=== PATIENT | male | born 1975 | race Caucasian/White ===

== ENCOUNTER 2019-10-18 10:06 | Day surgery (SDC) | payer MEDICAID ==
[2019-10-13 10:27] LABS: BASOPHILS % (AUTO) 0.4 % (0-1); EOSINOPHILS # (AUTO) 0.2 X10'3 (0-0.9); EOSINOPHILS % (AUTO) 2.4 % (0-6); LYMPHOCYTES # (AUTO) 2.1 X10'3 (1.1-4.8); LYMPHOCYTES % (AUTO) 24.7 % (21-51); MEAN CORPUSCULAR HEMOGLOBIN 29.3 PG (27.0-31.0); MEAN CORPUSCULAR HGB CONC 33.6 g/dL (33.0-36.5); MEAN CORPUSCULAR VOLUME 87.2 FL (78-98); MEAN PLATELET VOLUME 8.3 FL (7.4-10.4); MONOCYTES # (AUTO) 0.8 X10'3 (0-0.9); MONOCYTES % (AUTO) 9.5 % (2-12); NEUTROPHILS # (AUTO) 5.3 X10'3 (1.8-7.7); PRE OP HEMATOCRIT 48.5 % (42.0-52.0); PRE OP HEMOGLOBIN 16.3 g/dL (14.0-17.9); PRE OP PLATELET COUNT 229 X10'3 (140-440); RED BLOOD COUNT 5.56 X10'6 (4.70-6.10)
[2019-10-13 10:34] LABS: ALBUMIN 3.6 G/DL (3.4-5.0); ALKALINE PHOSPHATASE 99 IU/L (46-116); BLOOD UREA NITROGEN 18 MG/DL (7-18); BUN/CREATININE RATIO 15.3 (5.4-32.0); CALCIUM 9.2 MG/DL (8.5-10.1); CHLORIDE 106 MMOL/L (99-107); CREATININE 1.18 MG/DL (0.60-1.10); PRE OP ALT 41 U/L (30-65); PRE OP ANION GAP 6 (8-16); PRE OP AST 23 U/L (10-37); PRE OP BILIRUB, TOTAL 0.3 MG/DL (0.0-1.0); PRE OP GLUCOSE 100 MG/DL (70-104); PRE OP POTASSIUM 4.4 MMOL/L (3.4-5.1); PRE OP SODIUM 140 MMOL/L (135-145); TOTAL CARBON DIOXIDE 27.8 MMOL/L (24-32); TOTAL PROTEIN 7.3 G/DL (6.4-8.2); eGFR 67 ML/MIN
[~2019-10-18] VITALS: Ht 180.3 cm; Wt 127.0 kg
[2019-10-18] VITALS (17 sets, daily range): BP systolic 129–152; BP diastolic 61–98
[~2019-10-18 10:06] MED LIST: BUPIVAcaine/PF 2.5 mg/ml (0.25%) 30ml vial ONE; CHOL500050; LIDOcaine 1% 30ml preserv. free vial ONE; METO-477 PO; ceFAZolin/D5W- 1GM premix 50 ML IV ONE; cefazolin/dext.iso 2gm/50ml 50 ML IV ONE; famotidine 20mg tablet PO ONE; ringers solution, lacted 1,000 ML IV SCH
[2019-10-18] MEDS ORDERED: diazepam 5mg tablet PO ONE (10:55)
[2019-10-18] MEDS ORDERED: ringers solution, lacted 1,000 ML IV SCH (11:14)
[2019-10-18] MEDS ORDERED: proCHLORperazine 10 MG/2 ml inj IV PRN (11:15)
[2019-10-18] MEDS ORDERED: meperidine/PF 25mg/ml syringe IV PRN ×2 (11:15)
[2019-10-18] MEDS ORDERED: morphine 2 MG/ML inj. syringe IV PRN (11:15)
[2019-10-18] MEDS ORDERED: ondansetron/PF 4mg/2ml inj IV PRN (11:15)
[2019-10-18] MEDS ORDERED: morphine 4 MG/ML inj SYRINge IV PRN (11:15)
[2019-10-18] MEDS ORDERED: fentaNYL/PF 50MCG/1 ML 2ML syringe ONE (12:45)
[2019-10-18] MEDS ORDERED: LIDOcaine 2% (20mg/ml) 5ml vial ONE (12:45)
[2019-10-18] MEDS ORDERED: propofol inj 20 ML IV ONE (12:45)
[2019-10-18] MEDS ORDERED: midazolam 2 mg/2 ml injection ONE (12:45)
[2019-10-18] MEDS ORDERED: rocuronium 10mg/ml inj IV ONE (12:45)
[2019-10-18] MEDS ORDERED: BUPIVAcaine/PF 2.5mg/ml (0.25%) 10ml vial ONE (13:03)
[2019-10-18] MEDS ORDERED: BUPIVACAINE liposomal/PF 13.3 MG/ML vial IM ONE (13:04)
[2019-10-18] MEDS ORDERED: acetaminophen 1000 MG/100ml vial IV ONE (13:12)
[2019-10-18] MEDS ORDERED: neostigmine methylsulfate 1 MG/ML 10ml vial ONE (13:12)
[2019-10-18] MEDS ORDERED: sevoflurane 250ml liquid IH ONE (13:12)
[2019-10-18] MEDS ORDERED: dexamethasone sod phosphate 4mg/ml inj. ONE (13:40)
[2019-10-18] MEDS ORDERED: ondansetron/PF 4mg/2ml inj ONE ×2 (13:41)
[2019-10-18] MEDS ORDERED: morphine 4 MG/ML inj SYRINge ONE (13:42)
[2019-10-18] MEDS ORDERED: oxyCODONE/APAP 10/325mg tablet PO PRN (14:45)
[2019-10-18] MEDS ORDERED: glycopyrrolate 0.2mg/ml inj ONE (14:47)
--- NOTE | 2019-10-18 14:51 | NUR ---
RECEIVED FROM OR VIA [facility] ACCOMPANIED BY ANESTHESIOLOGIST DR MCCAIN, REPORT GIVEN. PT DROWSY BUT AWAKENS WITH NO COMPLAINT OF PAIN AT THIS TIME. 20 GAUGE PIV L HAND PATENT AND RUNNING LR AT 100 ML/HR. LG BANDAIDSX 4 TO ABD CDI WITH ABD BINDER IN PLACE. WALKER, SKIN PINK AND WARM, SKIN PINK AND WARM.
--- NOTE | 2019-10-18 14:51 | NUR ---
AWAKE AND ALERT WITH A LEVEL 5 PAIN AT THIS TIME. 20 GAUGE PIV L HAND DC/D CATH TIP INTACT. LG BANDAIDSX 4 TO ABD CDI WITH ABD BINDER IN PLACE. WALKER, SKIN PINK AND WARM, SKIN PINK AND WARM. TOLERATING FLUIDS AND ABLE TO VOID, DISCHARGE INSTRUCTIONS GIVEN AND VERBALIZED UNDERSTANDING. TRANSPORTED VIA WHEELCHAIR TO FAMILY IN PERSONAL VEHICLE TO HOME.
[2019-10-18] MEDS: meperidine/PF 25mg/ml syringe IV PRN ×4 (15:18→16:56)
== END 2019-10-18 17:31 | disposition home or self-care (01) ==
LOC: PAS 10:06
PROVIDERS: ATTEND Surgery
DX: K42.0 Umbilical hernia with obstruction, without gangrene (principal); I10 Essential (primary) hypertension; G89.29 Other chronic pain; Z98.890 Other specified postprocedural states; Z79.899 Other long term (current) drug therapy; F17.210 Nicotine dependence, cigarettes, uncomplicated; Z11.59 Encounter for screening for other viral diseases; Z82.49 Family history of ischemic heart disease and other diseases of the circulatory system; Z82.3 Family history of stroke
CPT/HCPCS: 36415; 49653; 64488; 80053; 82948; 85025; 87635; C1781; C9290; J0131; J0690; J1100; J2001; J2175; J2250; J2270; J2405; J2704; J2710; J3010; J3490; J7120; S2900; A4215; A4618

== ENCOUNTER 2019-10-31 22:59 | Emergency (ER) | payer MEDICAID ==
[~2019-10-31] VITALS: Ht 180.3 cm; Wt 150.5 kg
[~2019-10-31 22:59] MED LIST changes: -BUPIVAcaine/PF 2.5 mg/ml (0.25%) 30ml vial ONE; -LIDOcaine 1% 30ml preserv. free vial ONE; -ceFAZolin/D5W- 1GM premix 50 ML IV ONE; -cefazolin/dext.iso 2gm/50ml 50 ML IV ONE; -famotidine 20mg tablet PO ONE; -ringers solution, lacted 1,000 ML IV SCH
[2019-10-31 23:34] LABS: BASOPHILS # (AUTO) 0.1 X10'3 (0-0.2); BASOPHILS % (AUTO) 0.5 % (0-1); EOSINOPHILS # (AUTO) 0.2 X10'3 (0-0.9); HEMATOCRIT 48.5 % (42.0-52.0); HEMOGLOBIN 16.1 g/dl (14.0-17.9); LYMPHOCYTES # (AUTO) 2.6 X10'3 (1.1-4.8); LYMPHOCYTES % (AUTO) 22.3 % (21-51); MEAN CORPUSCULAR HEMOGLOBIN 28.8 PG (27.0-31.0); MEAN CORPUSCULAR HGB CONC 33.2 g/dL (33.0-36.5); MEAN CORPUSCULAR VOLUME 86.6 FL (78-98); MEAN PLATELET VOLUME 7.9 FL (7.4-10.4); MONOCYTES # (AUTO) 0.9 X10'3 (0-0.9); MONOCYTES % (AUTO) 7.8 % (2-12); NEUTROPHILS # (AUTO) 7.8 X10'3 (1.8-7.7); NEUTROPHILS % (AUTO) 67.4 % (42-75); PLATELET COUNT 278 X10'3 (140-440); RED CELL DISTRIBUTION WIDTH 14.2 % (11.5-14.5); WHITE BLOOD COUNT 11.6 X10'3 (4.5-11.0)
[2019-10-31 23:49] LABS: PARTIAL THROMBOPLASTIN TIME 27 SECONDS (22-32)
[2019-10-31 23:52] LABS: ALANINE AMINOTRANSFERASE 33 U/L (12-78); ALBUMIN 3.8 G/DL (3.4-5.0); ALKALINE PHOSPHATASE 116 IU/L (46-116); ANION GAP 7 (8-16); ASPARTATE AMINO TRANSFERASE 9 U/L (10-37); BILIRUBIN,TOTAL 0.2 MG/DL (0.1-1.0); BLOOD UREA NITROGEN 14 MG/DL (7-18); BUN/CREATININE RATIO 11.9 (5.4-32.0); CALCIUM 9.1 MG/DL (8.5-10.1); CHLORIDE 106 MMOL/L (99-107); CREATININE 1.18 MG/DL (0.60-1.10); GLUCOSE 105 MG/DL (70-104); POTASSIUM 3.8 MMOL/L (3.5-5.1); SODIUM 140 MMOL/L (135-145); TOTAL PROTEIN 7.7 G/DL (6.4-8.2); eGFR 67 ML/MIN
[2019-10-31] MEDS ORDERED: iohexol 300mg/ml 100ml inj. ONE (23:52)
[2019-11-01 00:16] LABS: CLARITY,URINE CLEAR (Clear); COLOR,URINE YELLOW (Yellow); GLUCOSE, URINE NEGATIVE (Neg); KETONES,URINE NEGATIVE (Neg); LEUKOCYTE ESTERASE ,URINE NEGATIVE (Neg); NITRITES, URINE NEGATIVE (Neg); OCCULT BLOOD,URINE SMALL (Neg); PH,URINE 6.5 (4.8-8.0); PROTEIN,URINE NEGATIVE (Neg); UROBILINOGEN,URINE 0.2 E.U/dL (0.2-1.0)
[2019-11-01 00:25] LABS: UA COLLECTION TYPE CLN CATCH MIDSTREAM
[2019-11-01 00:26] LABS: BACTERIA,URINE FEW /HPF (Neg); RBC,URINE 0-2 /HPF (0-2); SQUAMOUS EPITHELIAL CELL,UR FEW /LPF (FEW); WBC,URINE 0-4 /HPF (0-4)
[2019-11-01] MEDS ORDERED: HYDROcodone/acetaminophen 5mg/325mg tablet PO ONE (00:40)
[2019-11-01 00:43] VITALS: BP 173/116
== END 2019-11-01 01:37 | disposition home or self-care (01) ==
LOC: ER 22:59
DX: G89.18 Other acute postprocedural pain (principal); R10.12 Left upper quadrant pain; I10 Essential (primary) hypertension; Z98.890 Other specified postprocedural states; Z79.899 Other long term (current) drug therapy
CPT/HCPCS: 36415; 74177; 80053; 81001; 83605; 84145; 85025; 85610; 85730; 87040; 87088; 99285; Q9967; 99284

== ENCOUNTER 2020-10-03 08:10 | Emergency (ER) | payer MEDICAID ==
[~2020-10-03] VITALS: Ht 180.3 cm; Wt 128.4 kg
[2020-10-03] MEDS ORDERED: morphine 4 MG/ML inj SYRINge IV ONE (08:30)
[2020-10-03] MEDS ORDERED: normal saline 1000ML IV soln IVB ONE (08:30)
[2020-10-03] MEDS ORDERED: ondansetron/PF 4mg/2ml inj IV ONE (08:30)
[2020-10-03 08:51] LABS: CLARITY,URINE SLIGHTLY CLOUDY (Clear); COLOR,URINE YELLOW (Yellow); GLUCOSE, URINE NEGATIVE (Neg); KETONES,URINE NEGATIVE (Neg); LEUKOCYTE ESTERASE ,URINE NEGATIVE (Neg); OCCULT BLOOD,URINE SMALL (Neg); PROTEIN,URINE NEGATIVE (Neg); UROBILINOGEN,URINE 0.2 E.U/dL (0.2-1.0)
[2020-10-03 08:51] LABS: BASOPHILS % (AUTO) 0.5 % (0-1); EOSINOPHILS # (AUTO) 0.1 X10'3 (0-0.9); EOSINOPHILS % (AUTO) 1.8 % (0-6); HEMATOCRIT 52.6 % (42.0-52.0); HEMOGLOBIN 17.9 g/dl (14.0-17.9); LYMPHOCYTES % (AUTO) 24.3 % (21-51); MEAN CORPUSCULAR HEMOGLOBIN 29.8 PG (27.0-31.0); MEAN CORPUSCULAR VOLUME 87.6 FL (78-98); MONOCYTES # (AUTO) 0.7 X10'3 (0-0.9); MONOCYTES % (AUTO) 9.3 % (2-12); NEUTROPHILS # (AUTO) 5.2 X10'3 (1.8-7.7); NEUTROPHILS % (AUTO) 64.1 % (42-75); PLATELET COUNT 219 X10'3 (140-440); RED BLOOD COUNT 6.01 X10'6 (4.70-6.10); RED CELL DISTRIBUTION WIDTH 14.5 % (11.5-14.5); WHITE BLOOD COUNT 8.1 X10'3 (4.5-11.0)
[2020-10-03 08:54] LABS: UA COLLECTION TYPE NON-SPECIFIED
[2020-10-03 08:56] LABS: NITRITES, URINE NEGATIVE (Neg)
[2020-10-03 08:58] LABS: BACTERIA,URINE FEW /HPF (Neg); HYALINE CASTS 0-3 /LPF (NEGATIVE); MUCUS STRANDS MODERATE /LPF (Neg); RBC,URINE 0-2 /HPF (0-2); SQUAMOUS EPITHELIAL CELL,UR FEW /LPF (FEW); WBC,URINE 0-4 /HPF (0-4)
[2020-10-03 09:06] LABS: ALANINE AMINOTRANSFERASE 59 U/L (12-78); ALBUMIN 3.7 G/DL (3.4-5.0); ALBUMIN/GLOBULIN RATIO 0.9 (1.1-1.5); ALKALINE PHOSPHATASE 97 IU/L (46-116); ANION GAP 12 (8-16); ASPARTATE AMINO TRANSFERASE 23 U/L (10-37); BILIRUBIN,TOTAL 0.4 MG/DL (0.1-1.0); BLOOD UREA NITROGEN 14 MG/DL (7-18); BUN/CREATININE RATIO 13.6 (5.4-32.0); CALCIUM 9.2 MG/DL (8.5-10.1); CHLORIDE 107 MMOL/L (99-107); CREATININE 1.03 MG/DL (0.60-1.10); GLUCOSE 114 MG/DL (70-104); LIPASE 108 U/L (73-393); POTASSIUM 4.3 MMOL/L (3.5-5.1); SODIUM 143 MMOL/L (135-145); TOTAL PROTEIN 7.7 G/DL (6.4-8.2); eGFR 78 ML/MIN
[2020-10-03] MEDS ORDERED: ketorolac trometh. 30mg/ml inj. IV ONE (09:10)
[2020-10-03 09:15] VITALS: BP 135/98
== END 2020-10-03 10:13 | disposition home or self-care (01) ==
LOC: ER 08:10
DX: R10.33 Periumbilical pain (principal); I10 Essential (primary) hypertension; Z98.890 Other specified postprocedural states; Z79.899 Other long term (current) drug therapy
CPT/HCPCS: 36415; 80053; 81001; 83690; 85025; 96361; 96374; 96375; 99284; J1885; J2405; J7030

== ENCOUNTER 2021-02-10 13:21 | Emergency (ER) | payer MEDICAID | END 2021-02-10 13:56 | disposition left against medical advice (07) | LOC: ER 13:22 | DX: R10.9 Unspecified abdominal pain (principal); Z53.21 Procedure and treatment not carried out due to patient leaving prior to being seen by health care provider ==

== ENCOUNTER 2021-02-11 09:09 | Emergency (ER) | payer MEDICAID ==
[~2021-02-11] VITALS: Ht 180.3 cm; Wt 122.7 kg
[2021-02-11 09:28] VITALS: BP 128/87
[2021-02-11 10:14] LABS: BASOPHILS % (AUTO) 0.6 % (0-1); EOSINOPHILS # (AUTO) 0.2 X10'3 (0-0.9); EOSINOPHILS % (AUTO) 2.4 % (0-6); HEMATOCRIT 50.8 % (42.0-52.0); HEMOGLOBIN 17.1 g/dl (14.0-17.9); LYMPHOCYTES # (AUTO) 1.7 X10'3 (1.1-4.8); LYMPHOCYTES % (AUTO) 23.3 % (21-51); MEAN CORPUSCULAR HEMOGLOBIN 29.1 PG (27.0-31.0); MEAN CORPUSCULAR HGB CONC 33.6 g/dL (33.0-36.5); MEAN CORPUSCULAR VOLUME 86.5 FL (78-98); MONOCYTES # (AUTO) 0.7 X10'3 (0-0.9); MONOCYTES % (AUTO) 9.6 % (2-12); NEUTROPHILS # (AUTO) 4.7 X10'3 (1.8-7.7); NEUTROPHILS % (AUTO) 64.1 % (42-75); PLATELET COUNT 237 X10'3 (140-440); RED BLOOD COUNT 5.87 X10'6 (4.70-6.10); RED CELL DISTRIBUTION WIDTH 13.1 % (11.5-14.5); WHITE BLOOD COUNT 7.4 X10'3 (4.5-11.0)
[2021-02-11 10:29] LABS: ALANINE AMINOTRANSFERASE 61 U/L (12-78); ALBUMIN/GLOBULIN RATIO 1.1 (1.1-1.5); ALKALINE PHOSPHATASE 108 IU/L (46-116); ANION GAP 10 (8-16); ASPARTATE AMINO TRANSFERASE 25 U/L (10-37); BILIRUBIN,TOTAL 0.3 MG/DL (0.1-1.0); BLOOD UREA NITROGEN 16 MG/DL (7-18); BUN/CREATININE RATIO 14.5 (5.4-32.0); CALCIUM 9.6 MG/DL (8.5-10.1); CHLORIDE 104 MMOL/L (99-107); GLUCOSE 111 MG/DL (70-104); LIPASE 83 U/L (73-393); POTASSIUM 3.9 MMOL/L (3.5-5.1); SODIUM 140 MMOL/L (135-145); TOTAL PROTEIN 7.7 G/DL (6.4-8.2); eGFR 72 ML/MIN
== END 2021-02-11 20:36 | disposition left against medical advice (07) ==
LOC: ER 09:09
DX: R10.9 Unspecified abdominal pain (principal); Z53.21 Procedure and treatment not carried out due to patient leaving prior to being seen by health care provider
CPT/HCPCS: 36415; 80053; 83690; 85025

== ENCOUNTER 2021-02-16 15:54 | Inpatient (IN) | payer MEDICAID ==
[~2021-02-16] VITALS: Ht 180.3 cm; Wt 122.7 kg
[2021-02-16] MEDS ORDERED: IOHEXOL 12MG/ML oral solution 500 ML BOTTLE PO ONE (16:15)
[2021-02-16] MEDS ORDERED: morphine 4 MG/ML inj SYRINge IV ONE ×2 (16:40→19:00)
[2021-02-16] MEDS ORDERED: ondansetron/PF 4mg/2ml inj IV ONE ×2 (16:40→19:00)
[2021-02-16 16:54] LABS: BASOPHILS % (AUTO) 0.5 % (0-1); EOSINOPHILS # (AUTO) 0.2 X10'3 (0-0.9); EOSINOPHILS % (AUTO) 1.9 % (0-6); HEMATOCRIT 48.6 % (42.0-52.0); HEMOGLOBIN 16.3 g/dl (14.0-17.9); LYMPHOCYTES # (AUTO) 2.1 X10'3 (1.1-4.8); LYMPHOCYTES % (AUTO) 24.4 % (21-51); MEAN CORPUSCULAR HEMOGLOBIN 29.2 PG (27.0-31.0); MEAN CORPUSCULAR HGB CONC 33.6 g/dL (33.0-36.5); MEAN CORPUSCULAR VOLUME 86.8 FL (78-98); MONOCYTES # (AUTO) 0.8 X10'3 (0-0.9); NEUTROPHILS # (AUTO) 5.5 X10'3 (1.8-7.7); NEUTROPHILS % (AUTO) 64.2 % (42-75); PLATELET COUNT 254 X10'3 (140-440); RED CELL DISTRIBUTION WIDTH 13.2 % (11.5-14.5); WHITE BLOOD COUNT 8.6 X10'3 (4.5-11.0)
[2021-02-16 17:06] LABS: ALANINE AMINOTRANSFERASE 59 U/L (12-78); ALBUMIN 3.8 G/DL (3.4-5.0); ALBUMIN/GLOBULIN RATIO 1.1 (1.1-1.5); ALKALINE PHOSPHATASE 105 IU/L (46-116); ANION GAP 8 (8-16); ASPARTATE AMINO TRANSFERASE 21 U/L (10-37); BILIRUBIN,TOTAL 0.3 MG/DL (0.1-1.0); BLOOD UREA NITROGEN 15 MG/DL (7-18); BUN/CREATININE RATIO 13.6 (5.4-32.0); CALCIUM 9.1 MG/DL (8.5-10.1); CHLORIDE 108 MMOL/L (99-107); GLUCOSE 88 MG/DL (70-104); LIPASE 82 U/L (73-393); SODIUM 142 MMOL/L (135-145); TOTAL CARBON DIOXIDE 25.7 MMOL/L (24-32); TOTAL PROTEIN 7.4 G/DL (6.4-8.2); eGFR 72 ML/MIN
[2021-02-16 18:10] LABS: TROPONIN I < 0.04 NG/ML (0.0-0.05)
--- NOTE | 2021-02-16 18:32 | NUR ---
Urine and covid swab, sent to lab.
[2021-02-16 18:41] LABS: D-DIMER < 0.19 MG/L FEU (0-0.50)
[2021-02-16] MEDS ORDERED: iohexol 350MG/ML 100ml bottle IV ONE (18:41)
[2021-02-16 19:11] LABS: CLARITY,URINE CLEAR (Clear); COLOR,URINE YELLOW (Yellow); GLUCOSE, URINE NEGATIVE (Neg); KETONES,URINE NEGATIVE (Neg); PROTEIN,URINE NEGATIVE (Neg); UA COLLECTION TYPE CLN CATCH MIDSTREAM
[2021-02-16 19:12] LABS: LEUKOCYTE ESTERASE ,URINE NEGATIVE (Neg); NITRITES, URINE NEGATIVE (Neg); OCCULT BLOOD,URINE SMALL (Neg); UROBILINOGEN,URINE 0.2 E.U/dL (0.2-1.0)
[2021-02-16 19:13] LABS: RBC,URINE 0-2 /HPF (0-2); WBC,URINE 0-4 /HPF (0-4)
[2021-02-16 19:14] LABS: BACTERIA,URINE NONE SEEN /HPF (Neg); HYALINE CASTS 0-3 /LPF (NEGATIVE); MUCUS STRANDS MODERATE /LPF (Neg); SQUAMOUS EPITHELIAL CELL,UR FEW /LPF (FEW)
[2021-02-16 19:19] LABS: ABG BASE EXCESS -1.3 mmol/L (-2.0-2.0); ABG HCO3 22.1 mmol/L (22.0-26.0); ABG PCO2 (T) 33.3 mmHg (35.0-48.0); ABG PO2 (T) 88.8 mmHg (75.0-100.0); ALLEN'S TEST POSITIVE; FCOHb 0.6 % (0.0-3.9); FLOW 4 L/min; FMetHb 0.1 % (0.0-1.5); FO2Hb 96.3 % (94-97); PATIENT TEMPERATURE 36.7; TOTAL HEMOGLOBIN 15.6 G/dl (14.0-18.0)
[2021-02-16] MEDS ORDERED: ipratropium/albuterol 3ml nebule NEB ONE (19:35)
[2021-02-16] MEDS ORDERED: METO-395 PO (19:52)
[2021-02-16] MEDS ORDERED: LOSA1TAB39 PO (19:52)
[2021-02-16] MEDS ORDERED: albuterol 2.5 MG/3 ML nebule NEB PRN (20:25)
[2021-02-16] MEDS ORDERED: magnesium 4gm in 100ml NS 100 ML IV PRN (20:25)
[2021-02-16] MEDS ORDERED: acetaminophen 325mg tablet PO PRN (20:25)
[2021-02-16] MEDS ORDERED: ondansetron/PF 4mg/2ml inj IV PRN (20:25)
[2021-02-16] MEDS ORDERED: mag hydrox/Alum hydrox/simeth 30ml oral suspension PO PRN (20:25)
[2021-02-16] MEDS ORDERED: ipratropium/albuterol 3ml nebule NEB PRN (20:25)
[2021-02-16] MEDS ORDERED: magnesium 2GM in 50ml NS 50 ML IV PRN (20:25)
[2021-02-16] MEDS ORDERED: potassium Cl 20 mEq SR tablet PO PRN ×2 (20:25)
[2021-02-16] MEDS ORDERED: potassium Cl 40MEQ/1/2NS 520ml 520 ML IV PRN ×2 (20:25)
[2021-02-16] MEDS ORDERED: furosemide 10 MG/1 ML 10ml inj IV ONE (21:30)
[2021-02-16] MEDS ORDERED: methylPREDNISolone sod succ 125mg/2ml vial IV ONE (21:30)
[2021-02-17 01:43] LABS: BASOPHILS % (AUTO) 0.3 % (0-1); EOSINOPHILS # (AUTO) 0.1 X10'3 (0-0.9); EOSINOPHILS % (AUTO) 0.9 % (0-6); HEMATOCRIT 47.4 % (42.0-52.0); HEMOGLOBIN 16.6 g/dl (14.0-17.9); LYMPHOCYTES # (AUTO) 1.2 X10'3 (1.1-4.8); LYMPHOCYTES % (AUTO) 13.1 % (21-51); MEAN CORPUSCULAR HEMOGLOBIN 29.9 PG (27.0-31.0); MEAN CORPUSCULAR VOLUME 85.4 FL (78-98); MONOCYTES # (AUTO) 0.3 X10'3 (0-0.9); MONOCYTES % (AUTO) 3.5 % (2-12); NEUTROPHILS # (AUTO) 7.3 X10'3 (1.8-7.7); NEUTROPHILS % (AUTO) 82.2 % (42-75); PLATELET COUNT 232 X10'3 (140-440); RED BLOOD COUNT 5.55 X10'6 (4.70-6.10); WHITE BLOOD COUNT 8.8 X10'3 (4.5-11.0)
[2021-02-17 01:50] LABS: ALANINE AMINOTRANSFERASE 62 U/L (12-78); ALBUMIN 4.1 G/DL (3.4-5.0); ALBUMIN/GLOBULIN RATIO 1.1 (1.1-1.5); ALKALINE PHOSPHATASE 104 IU/L (46-116); ANION GAP 7 (8-16); ASPARTATE AMINO TRANSFERASE 23 U/L (10-37); BILIRUBIN,TOTAL 0.4 MG/DL (0.1-1.0); BLOOD UREA NITROGEN 16 MG/DL (7-18); BUN/CREATININE RATIO 10.6 (5.4-32.0); CHLORIDE 101 MMOL/L (99-107); CREATININE 1.51 MG/DL (0.60-1.10); GLUCOSE 105 MG/DL (70-104); MAGNESIUM 2.2 MG/DL (1.5-2.4); POTASSIUM 3.6 MMOL/L (3.5-5.1); SODIUM 136 MMOL/L (135-145); TOTAL PROTEIN 7.9 G/DL (6.4-8.2); eGFR 50 ML/MIN
[2021-02-17] MEDS ORDERED: PERFLUTREN PROTEIN-A MICROSPHR (Optison) 0.22 MG/ML 3ML VIAL IV PRN (02:45)
--- NOTE | 2021-02-17 04:26 | NUR ---
PT DIAMANTE CALLED TPO CHECK ON PT. PT OKED, UPDATED HER WITH CARE PLAN AND CURRENT LABS.
--- NOTE | 2021-02-17 05:52 | NUR ---
SEND OUT COVID SWAB CSENT TO LAB
[2021-02-17] MEDS ORDERED: furosemide 20 MG/2 ML vial IV SCH (08:00)
[2021-02-17] MEDS ORDERED: HYDROchlorothiazide 25mg tablet PO SCH (08:00)
[2021-02-17] MEDS ORDERED: predniSONE 20 mg tablet PO SCH (08:00)
[2021-02-17] MEDS ORDERED: K and/or MAG REPLACEMENT MC SCH (08:00)
[2021-02-17] MEDS ORDERED: metoprolol succinate 25mg (24-HOUR) SR. Tablet PO SCH (08:00)
[2021-02-17] MEDS ORDERED: losartan 50mg tablet PO SCH (08:00)
[2021-02-17] MEDS ORDERED: non-formulary drug (Losartan/Hydrochlorothiazide (Losartan-Hctz 100-25 Mg Tab) 1 TAB) PO SCH (08:00)
[2021-02-17] MEDS ORDERED: docusate sod 100mg capsule PO SCH (08:00)
[2021-02-17] MEDS ORDERED: budesonide 0.5mg/2ml UD nebule IH SCH (08:00)
[2021-02-17 10:13] VITALS: BP 128/92
[2021-02-17] MEDS ORDERED: enoxaparin 40mg/0.4ml syringe SQ SCH (20:00)
== END 2021-02-17 15:04 | disposition home or self-care (01) | DRG 862 ==
LOC: ER 15:55 → ED HOLD 20:38
PROVIDERS: ADMIT Family Medicine; ATTEND Family Medicine
PROC: B32T1ZZ Computerized Tomography (CT Scan) of Left Pulmonary Artery using Low Osmolar Contrast (ICD-10-PCS; principal; 2021-02-16)
PROC: B3201ZZ Computerized Tomography (CT Scan) of Thoracic Aorta using Low Osmolar Contrast (ICD-10-PCS; 2021-02-16)
PROC: B32S1ZZ Computerized Tomography (CT Scan) of Right Pulmonary Artery using Low Osmolar Contrast (ICD-10-PCS; 2021-02-16)
DX: T85.898A Other specified complication of other internal prosthetic devices, implants and grafts, initial encounter (principal); J96.01 Acute respiratory failure with hypoxia; F12.90 Cannabis use, unspecified, uncomplicated; I10 Essential (primary) hypertension; Y83.8 Other surgical procedures as the cause of abnormal reaction of the patient, or of later complication, without mention of misadventure at the time of the procedure; Z20.822 Contact with and (suspected) exposure to COVID-19; Z88.8 Allergy status to other drugs, medicaments and biological substances; Z79.899 Other long term (current) drug therapy; Y92.89 Other specified places as the place of occurrence of the external cause
CPT/HCPCS: 36415; 36600; 71045; 71275; 74176; 80053; 81001; 82803; 83690; 83735; 83880; 84484; 85018; 85025; 85379; 87635; 93005; 93306; 94640; 94760; 96361; 96374; 96375; 99285; C9803; G0378; J1940; J2270; J2405; J2930; J7512; J7626; Q9967; U0003; U0005

== ENCOUNTER 2024-09-18 11:21 | Inpatient (IN) | payer SELFPAY ==
[~2024-09-18] VITALS: Ht 177.8 cm; Wt 114.9 kg
[~2024-09-18 11:21] MED LIST changes: -CHOL500050; +METO-395 PO; -METO-477 PO
[2024-09-18 11:55] LABS: BASOPHILS # (AUTO) 0.1 X10'3 (0-0.2); BASOPHILS % (AUTO) 0.4 % (0-1); EOSINOPHILS # (AUTO) 0.1 X10'3 (0-0.9); EOSINOPHILS % (AUTO) 0.7 % (0-6); HEMATOCRIT 51.7 % (42.0-52.0); HEMOGLOBIN 17.3 g/dl (14.0-17.9); LYMPHOCYTES # (AUTO) 1.8 X10'3 (1.1-4.8); LYMPHOCYTES % (AUTO) 10.4 % (21-51); MEAN CORPUSCULAR HEMOGLOBIN 27.9 PG (27.0-31.0); MEAN CORPUSCULAR HGB CONC 33.4 g/dL (33.0-36.5); MEAN CORPUSCULAR VOLUME 83.4 FL (78-98); MEAN PLATELET VOLUME 7.6 FL (7.4-10.4); MONOCYTES # (AUTO) 1.2 X10'3 (0-0.9); MONOCYTES % (AUTO) 7.3 % (2-12); NEUTROPHILS # (AUTO) 13.7 X10'3 (1.8-7.7); NEUTROPHILS % (AUTO) 81.2 % (42-75); PLATELET COUNT 226 X10'3 (140-440); RED CELL DISTRIBUTION WIDTH 14.3 % (11.5-14.5); WHITE BLOOD COUNT 16.9 X10'3 (4.5-11.0)
[2024-09-18 12:12] LABS: ALANINE AMINOTRANSFERASE 38 U/L (12-78); ALBUMIN 3.8 G/DL (3.4-5.0); ALBUMIN/GLOBULIN RATIO 1.2 (1.1-1.5); ALKALINE PHOSPHATASE 117 IU/L (46-116); ANION GAP 5 (8-16); ASPARTATE AMINO TRANSFERASE 16 U/L (10-37); BILIRUBIN,TOTAL 0.6 MG/DL (0.1-1.0); BLOOD UREA NITROGEN 11 MG/DL (7-18); BUN/CREATININE RATIO 12.8 (10.0-20.0); CALCIUM 9.1 MG/DL (8.5-10.1); CHLORIDE 104 MMOL/L (99-107); CREATININE 0.86 MG/DL (0.60-1.10); GLUCOSE 92 MG/DL (70-104); POTASSIUM 4.4 MMOL/L (3.5-5.1); SODIUM 140 MMOL/L (135-145); TOTAL CARBON DIOXIDE 30.8 MMOL/L (24-32); TOTAL PROTEIN 7.1 G/DL (6.4-8.2); eCRCL 107 ML/MIN; eGFR > 90 ML/MIN
[2024-09-18 12:18] LABS: LIPASE 41 U/L (16-77); PRO BRAIN NATRIURETIC PEPTIDE 93 PG/ML (0-125)
[2024-09-18] MEDS: LORazepam 1 MG tablet PO ONE (12:26)
[2024-09-18] MEDS ORDERED: potassium Cl 40MEQ/1/2NS 520ml 520 ML IV PRN (13:40)
[2024-09-18] MEDS ORDERED: potassium Cl 20 mEq SR tablet PO PRN ×2 (13:40)
[2024-09-18] MEDS ORDERED: magnesium sulf-water 2g/50mL 50 ML IV PRN (13:40)
[2024-09-18] MEDS ORDERED: magnesium hydroxide 30ml (MOM) UD suspension PO PRN (13:40)
[2024-09-18] MEDS ORDERED: magnesium sulf-water 4G/100mL 100 ML IV PRN (13:40)
[2024-09-18] MEDS: HYDROmorphone inj. 0.5 MG/0.5 ML DISP.SYRIN IV ONE (13:52)
[2024-09-18] MEDS: normal saline 1000ml 1,000 ML IV SCH ×2 (13:53→23:05)
[2024-09-18] MEDS: piperacillin/tazo 4.5gm/100ml 100 ML IV STA (14:48)
[2024-09-18] MEDS: diazepam inj 5 MG/ML inj. IV ONE (15:01)
[2024-09-18] MEDS ORDERED: nitroGLYCERIN 0.4mg SUBLingual tab SL PRN (15:20)
[2024-09-18] MEDS ORDERED: aminophylline 500mg/20ml vial IV PRN (15:20)
[2024-09-18] MEDS ORDERED: metoprolol tartrate 1mg/ml inj IV PRN (15:20)
[2024-09-18] MEDS: enalaprilat 1.25mg/ml 2ml vial IV ONE (15:30)
[2024-09-18] MEDS: PERFLUTREN PROTEIN-A MICROSPHR (Optison) 0.22 MG/ML 3ML VIAL IV ONE (15:47)
[2024-09-18] MEDS: morphine 4 MG/ML inj SYRINge IV ONE (17:57)
[2024-09-18] MEDS: hydrALAZINE 20mg/ml inj. IV PRN (18:19)
[2024-09-18] MEDS ORDERED: VALS320T17 PO (18:48)
[2024-09-18] MEDS ORDERED: AMLO2.5T2 PO (18:48)
[2024-09-18 19:45] VITALS: BP 162/105; PULSE 114; RESP 16; TEMP 98.9; O2SAT 96
[2024-09-18 20:00] VITALS: RESP 16; O2SAT 96
[2024-09-18] MEDS: docusate sod 100mg capsule PO SCH (20:00)
[2024-09-18] MEDS: K and/or MAG REPLACEMENT MC SCH (20:08)
[2024-09-18 21:30] VITALS: BP 169/107; PULSE 124; RESP 20; TEMP 99.5; O2SAT 96
[2024-09-18] MEDS ORDERED: acetaminophen 325mg tablet PO PRN (21:30)
[2024-09-18] MEDS: HYDROcodone/acetaminophen 10/325mg tab PO PRN (21:49)
[2024-09-18] MEDS: metoprolol succinate 25mg (24-HOUR) SR. Tablet PO SCH (22:08)
[2024-09-18 23:05] VITALS: BP 162/102; PULSE 121
[2024-09-18 23:10] VITALS: BP 185/102; PULSE 121
[2024-09-18 23:20] VITALS: BP 187/103; PULSE 119
[2024-09-18] MEDS: acetaminophen 1,000mg/100ml IV 100 ML IV ONE (23:44)
[2024-09-19] VITALS (19 sets, daily range): BP systolic 114–179; BP diastolic 41–112; PULSE 81–126; RESP 16–29; TEMP 97.4–99.3; O2SAT 92–97
[2024-09-19] MEDS ORDERED: niCARDipine-NS 40mg/200ml IVPB 200 ML IV SCH (00:25)
[2024-09-19] MEDS: piperacillin/tazo 4.5gm/100ml 100 ML IV SCH (00:44)
[2024-09-19 02:47] LABS: BILIRUBIN,URINE NEGATIVE (Neg); CLARITY,URINE CLEAR (Clear); COLOR,URINE YELLOW (Yellow); GLUCOSE, URINE NEGATIVE (Neg); KETONES,URINE NEGATIVE (Neg); LEUKOCYTE ESTERASE ,URINE NEGATIVE (Neg); NITRITES, URINE NEGATIVE (Neg); OCCULT BLOOD,URINE NEGATIVE (Neg); PH,URINE 7.5 (4.8-8.0); PROTEIN,URINE NEGATIVE (Neg); UROBILINOGEN,URINE 0.2 E.U/dL (0.2-1.0)
[2024-09-19 02:53] LABS: UA COLLECTION TYPE VOIDED
[2024-09-19 03:01] LABS: URINE AMPHETAMINE SCREEN NEGATIVE (Neg); URINE BARBITUATE SCREEN NEGATIVE (Neg); URINE BENZODIAZEPINES SCREEN POSITIVE (Neg); URINE CANNABINOID SCREEN POSITIVE (Neg); URINE COCAINE SCREEN NEGATIVE (Neg); URINE METHADONE SCREEN NEGATIVE (Neg); URINE OPIATE SCREEN POSITIVE (Neg); URINE PHENCYCLIDINE SCREEN NEGATIVE (Neg)
[2024-09-19 05:54] LABS: EOSINOPHILS % (AUTO) 0.1 % (0-6)
[2024-09-19 05:55] LABS: BASOPHILS # (AUTO) 0.1 X10'3 (0-0.2); BASOPHILS % (AUTO) 0.3 % (0-1); HEMATOCRIT 51.4 % (42.0-52.0); HEMOGLOBIN 17.3 g/dl (14.0-17.9); LYMPHOCYTES # (AUTO) 1.2 X10'3 (1.1-4.8); LYMPHOCYTES % (AUTO) 6.3 % (21-51); MEAN CORPUSCULAR HGB CONC 33.6 g/dL (33.0-36.5); MEAN CORPUSCULAR VOLUME 83.3 FL (78-98); MEAN PLATELET VOLUME 8.1 FL (7.4-10.4); MONOCYTES # (AUTO) 1.2 X10'3 (0-0.9); MONOCYTES % (AUTO) 6.1 % (2-12); NEUTROPHILS # (AUTO) 16.5 X10'3 (1.8-7.7); NEUTROPHILS % (AUTO) 87.2 % (42-75); PLATELET COUNT 215 X10'3 (140-440); RED BLOOD COUNT 6.17 X10'6 (4.70-6.10); RED CELL DISTRIBUTION WIDTH 13.9 % (11.5-14.5)
[2024-09-19 06:13] LABS: ALANINE AMINOTRANSFERASE 34 U/L (12-78); ALBUMIN 3.3 G/DL (3.4-5.0); ALBUMIN/GLOBULIN RATIO 0.9 (1.1-1.5); ALKALINE PHOSPHATASE 110 IU/L (46-116); ANION GAP 9 (8-16); ASPARTATE AMINO TRANSFERASE 15 U/L (10-37); BILIRUBIN,TOTAL 1.1 MG/DL (0.1-1.0); BLOOD UREA NITROGEN 8 MG/DL (7-18); BUN/CREATININE RATIO 11.4 (10.0-20.0); CALCIUM 8.7 MG/DL (8.5-10.1); CHLORIDE 104 MMOL/L (99-107); GLUCOSE 102 MG/DL (70-104); POTASSIUM 3.5 MMOL/L (3.5-5.1); SODIUM 139 MMOL/L (135-145); TOTAL CARBON DIOXIDE 26.2 MMOL/L (24-32); TOTAL PROTEIN 6.8 G/DL (6.4-8.2); eCRCL 132 ML/MIN; eGFR > 90 ML/MIN
[2024-09-19] MEDS: regadenoson 0.4mg/5ml syringe IV PRN (08:28)
[2024-09-19] MEDS: ondansetron/PF 4mg/2ml inj IV PRN (09:11)
[2024-09-19] MEDS: cloNIDine 0.1 mg tablet PO ONE (10:00)
[2024-09-19] MEDS: NORMAL SALINE IV ONE (19:00)
[2024-09-19] MEDS: SINCALIDE IV ONE (19:00)
[2024-09-20] VITALS (7 sets, daily range): BP systolic 132–154; BP diastolic 86–108; PULSE 80–108; RESP 14–18; TEMP 97.3–99.2; O2SAT 96–98
[2024-09-20 05:57] LABS: BASOPHILS % (AUTO) 0.2 % (0-1); EOSINOPHILS % (AUTO) 0.2 % (0-6); HEMATOCRIT 48.8 % (42.0-52.0); HEMOGLOBIN 16.5 g/dl (14.0-17.9); LYMPHOCYTES # (AUTO) 1.6 X10'3 (1.1-4.8); LYMPHOCYTES % (AUTO) 10.4 % (21-51); MEAN CORPUSCULAR HEMOGLOBIN 28.3 PG (27.0-31.0); MEAN CORPUSCULAR HGB CONC 33.8 g/dL (33.0-36.5); MEAN CORPUSCULAR VOLUME 83.8 FL (78-98); MEAN PLATELET VOLUME 7.9 FL (7.4-10.4); MONOCYTES # (AUTO) 1.4 X10'3 (0-0.9); MONOCYTES % (AUTO) 9.5 % (2-12); NEUTROPHILS # (AUTO) 12.1 X10'3 (1.8-7.7); NEUTROPHILS % (AUTO) 79.7 % (42-75); PLATELET COUNT 203 X10'3 (140-440); RED BLOOD COUNT 5.82 X10'6 (4.70-6.10); RED CELL DISTRIBUTION WIDTH 14.4 % (11.5-14.5); WHITE BLOOD COUNT 15.2 X10'3 (4.5-11.0)
[2024-09-20 06:23] LABS: ALANINE AMINOTRANSFERASE 34 U/L (12-78); ALBUMIN 3.1 G/DL (3.4-5.0); ALBUMIN/GLOBULIN RATIO 0.8 (1.1-1.5); ANION GAP 8 (8-16); ASPARTATE AMINO TRANSFERASE 13 U/L (10-37); BILIRUBIN,TOTAL 1.4 MG/DL (0.1-1.0); BLOOD UREA NITROGEN 12 MG/DL (7-18); BUN/CREATININE RATIO 11.7 (10.0-20.0); CALCIUM 8.8 MG/DL (8.5-10.1); CHLORIDE 104 MMOL/L (99-107); CREATININE 1.03 MG/DL (0.60-1.10); GLUCOSE 98 MG/DL (70-104); MAGNESIUM 2.2 MG/DL (1.5-2.4); POTASSIUM 3.8 MMOL/L (3.5-5.1); SODIUM 142 MMOL/L (135-145); TOTAL CARBON DIOXIDE 30.2 MMOL/L (24-32); TOTAL PROTEIN 6.9 G/DL (6.4-8.2); eCRCL 90 ML/MIN; eGFR 77 ML/MIN
[2024-09-20 06:24] LABS: ALKALINE PHOSPHATASE 109 IU/L (46-116)
[2024-09-20] MEDS: metoprolol succinate 25mg (24-HOUR) SR. Tablet PO SCH (08:06)
[2024-09-20] MEDS: losartan 50mg tablet PO SCH (08:07)
[2024-09-20] MEDS: magnesium Cl slow-release 64mg tablet PO PRN (12:10)
[2024-09-20] MEDS: mag hydrox/Alum hydrox/simeth 30ml oral suspension PO PRN (15:30)
[2024-09-20] MEDS: acetaminophen 325mg tablet PO PRN (20:34)
[2024-09-21 06:00] VITALS: BP 171/110; PULSE 73; RESP 18; TEMP 98.1; O2SAT 97
[2024-09-21 06:08] VITALS: BP 141/92
[2024-09-21 06:39] LABS: BASOPHILS % (AUTO) 0.4 % (0-1); EOSINOPHILS # (AUTO) 0.1 X10'3 (0-0.9); EOSINOPHILS % (AUTO) 1.4 % (0-6); HEMATOCRIT 45.8 % (42.0-52.0); HEMOGLOBIN 15.8 g/dl (14.0-17.9); LYMPHOCYTES # (AUTO) 1.3 X10'3 (1.1-4.8); LYMPHOCYTES % (AUTO) 14.9 % (21-51); MEAN CORPUSCULAR HEMOGLOBIN 28.6 PG (27.0-31.0); MEAN CORPUSCULAR HGB CONC 34.4 g/dL (33.0-36.5); MEAN CORPUSCULAR VOLUME 83.1 FL (78-98); MEAN PLATELET VOLUME 7.8 FL (7.4-10.4); MONOCYTES % (AUTO) 11.5 % (2-12); NEUTROPHILS # (AUTO) 6.2 X10'3 (1.8-7.7); NEUTROPHILS % (AUTO) 71.8 % (42-75); PLATELET COUNT 194 X10'3 (140-440); RED BLOOD COUNT 5.51 X10'6 (4.70-6.10); RED CELL DISTRIBUTION WIDTH 14.1 % (11.5-14.5); WHITE BLOOD COUNT 8.6 X10'3 (4.5-11.0)
[2024-09-21 06:44] LABS: ALANINE AMINOTRANSFERASE 36 U/L (12-78); ALBUMIN 2.8 G/DL (3.4-5.0); ALBUMIN/GLOBULIN RATIO 0.7 (1.1-1.5); ALKALINE PHOSPHATASE 112 IU/L (46-116); ANION GAP 6 (8-16); ASPARTATE AMINO TRANSFERASE 19 U/L (10-37); BILIRUBIN,TOTAL 0.5 MG/DL (0.1-1.0); BLOOD UREA NITROGEN 12 MG/DL (7-18); CALCIUM 8.7 MG/DL (8.5-10.1); CHLORIDE 107 MMOL/L (99-107); GLUCOSE 102 MG/DL (70-104); MAGNESIUM 2.2 MG/DL (1.5-2.4); POTASSIUM 3.8 MMOL/L (3.5-5.1); SODIUM 141 MMOL/L (135-145); TOTAL CARBON DIOXIDE 27.8 MMOL/L (24-32); TOTAL PROTEIN 6.6 G/DL (6.4-8.2); eCRCL 115 ML/MIN; eGFR > 90 ML/MIN
[2024-09-21 08:45] VITALS: BP 143/103; PULSE 95; O2SAT 97
[2024-09-21] MEDS: spironolactone 25 MG tablet PO SCH (09:58)
[2024-09-21 10:00] VITALS: BP 159/118; PULSE 83; RESP 16; TEMP 98; O2SAT 97
[2024-09-21 10:05] VITALS: BP_SYST 175; PULSE 85
[2024-09-21] MEDS ORDERED: METR-159 PO (10:28)
[2024-09-21] MEDS ORDERED: CIPR-259 PO (10:28)
[2024-09-21] MEDS ORDERED: SPIR25TA PO (10:28)
[2024-09-21] MEDS ORDERED: PANT40TA54 PO (10:28)
[2024-09-21] MEDS ORDERED: METO-395 PO (10:28)
[2024-09-21] MEDS ORDERED: ACET-1008 PO (10:29)
== END 2024-09-21 12:15 | disposition home or self-care (01) | DRG 391 ==
LOC: ER 11:21 → UNDOADMIN 13:41 → ED HOLD 13:41 → ORTHO 4S 19:50
PROVIDERS: ADMIT Family Medicine; ATTEND Family Medicine
PROC: BW211ZZ Computerized Tomography (CT Scan) of Abdomen and Pelvis using Low Osmolar Contrast (ICD-10-PCS; 2024-09-18)
PROC: 4A02XM4 Measurement of Cardiac Total Activity, External Approach (ICD-10-PCS; principal; 2024-09-19)
PROC: 3E033HZ Introduction of Radioactive Substance into Peripheral Vein, Percutaneous Approach (ICD-10-PCS; 2024-09-19)
PROC: CF141ZZ Planar Nuclear Medicine Imaging of Gallbladder using Technetium 99m (Tc-99m) (ICD-10-PCS; 2024-09-20)
DX: K20.90 Esophagitis, unspecified without bleeding (principal); I50.21 Acute systolic (congestive) heart failure; K50.90 Crohn's disease, unspecified, without complications; I50.22 Chronic systolic (congestive) heart failure; K29.80 Duodenitis without bleeding; I16.0 Hypertensive urgency; I11.0 Hypertensive heart disease with heart failure; K80.20 Calculus of gallbladder without cholecystitis without obstruction; D72.829 Elevated white blood cell count, unspecified; Z87.891 Personal history of nicotine dependence; Z88.8 Allergy status to other drugs, medicaments and biological substances; Z88.5 Allergy status to narcotic agent; Z79.899 Other long term (current) drug therapy
CPT/HCPCS: 36415; 71045; 71260; 74177; 76700; 78226; 78452; 80053; 80305; 81003; 82948; 83605; 83690; 83735; 83880; 84145; 84484; 85025; 85651; 86140; 87040; 87081; 93005; 93017; 93306; 99285; A9500; A9537; G0378; J0131; J0360; J1171; J2270; J2405; J2543; J2785; J3360; J3490; J7030